=== PATIENT | female | born 1980 | race Two or more races ===

== ENCOUNTER 2019-10-31 05:07 | Day surgery (SDC) | payer BC ==
[2019-10-27 12:10] VITALS: BMI 41.0
[2019-10-31] MEDS ORDERED: MIDAZOLAM HCL 2 MG/2 ML SINGLE DOSE VIAL ONE (09:20)
--- NOTE | 2019-10-31 09:47 | HP ---
History & Physical Update - History History: No Change - Physical Physical: No Change - Assessment Assessment: No Change - Plan Plan: No Change (Consent signed and witnessed all questions answered)
--- NOTE | 2019-10-31 09:48 | OP ---
Operative Note - Note: Operative Date: 10/31/19 Pre-Operative Diagnosis: 39yo P2 with prolonged menses, anemia, fibroid uterus Operation: Hysteroscopy, Myomectomy, polypectomy, D&C Findings: Submucosal fibroid Endometrial polyp Cervical polyp Post-Operative Diagnosis: Same as Pre-op Surgeon: Livia Hudson Anesthesiologist/PUMPER GAUGER APPRENTICE: Nash Maddox Anesthesia: MAC Estimated Blood Loss (mls): 5 Instrument used (Debridements only): Symphion Hysteroscope with resectoscope Drains & Tubes with Location: Fluid deficit - 0cc Drains, Volume Out (mls): 100 Fluid Volume Replaced (mls): 400 Operative Report Dictated: Yes
[2019-10-31] MEDS ORDERED: IBUPROFEN 800 MG/8 ML IJ IVPB PRN (09:49)
[2019-10-31] MEDS ORDERED: ONDANSETRON 4 MG/2 ML VIAL IVPUSH PRN (09:49)
[2019-10-31] MEDS ORDERED: oxyCODONE HCL 5 MG TABLET PO PRN (09:49)
[2019-10-31] MEDS ORDERED: IBUPROFEN 600 MG TABLET (FP) PO PRN (09:49)
[2019-10-31] MEDS ORDERED: ELECTROLYTE-148 SOLN 1,000 ML IV SCH (10:00)
[2019-10-31] MEDS ORDERED: PROPOFOL 20 ML ONE ×2 (10:03→10:31)
[2019-10-31] MEDS ORDERED: DEXAMETHASONE SOD PHOSPHATE 4 MG/1 ML VIAL ONE (10:26)
[2019-10-31] MEDS ORDERED: LIDOCAINE HCL/PF 2% SDV 5ML VIAL ONE (10:26)
[2019-10-31] MEDS ORDERED: LIDOCAINE HCL 2% JELLY (5 ML/TUBE) ONE (10:26)
[2019-10-31] MEDS ORDERED: SUCCINYLCHOLINE CHLORIDE 200 MG/10 ML SYRINGE ONE (10:32)
[2019-10-31] MEDS ORDERED: LACTATED RINGERS SOLUTION 1,000 ML IV SCH (12:30)
--- NOTE | 2019-10-31 13:01 | OP ---
DATE OF OPERATION: DATE OF DICTATION: 10/31/2019 PREOPERATIVE DIAGNOSIS: A 39-year-old para 2 with prolonged menses, anemia, fibroid uterus. OPERATION: Hysteroscopy, myomectomy, polypectomy, dilation and curettage. FINDINGS: Submucosal fibroids, endometrial polyp, and cervical polyp. POSTOPERATIVE DIAGNOSIS: A 39-year-old para 2 with prolonged menses, anemia, fibroid uterus. SURGEON: Livia Hudson MD ANESTHESIOLOGIST: Nash Maddox MD ANESTHESIA: MAC. DESCRIPTION OF THE OPERATIVE PROCEDURE: After assuring informed consent, patient was brought to the operating room where she was placed in dorsal lithotomy position. Vagina and perineum were prepped and draped in a sterile fashion. The anterior cervical lip was articulated with single-tooth tenaculum, and cervix was gradually dilated to accommodate 6.3-mm Symphion hysteroscope, which was introduced into the cervix and into the uterus without any difficulty under direct visualization after Symphion hysteroscope was primed and wide balanced. The above findings were noted. The resectoscope was introduced through the operative port, and submucosal fibroid and 2 polyps, endometrial and cervical, were resected without any difficulty under direct good visualization. Subsequently, endometrium was curettaged as well. Subsequently, all the instruments were removed from uterus, cervix, and vagina. Patient tolerated the procedure well. Estimated blood loss 5 mL. Fluid deficit 0 mL. Patient drained 100 mL of urine and received 400 mL of IV fluids. All instrument and sponge count was correct x2. Patient tolerated procedure well and went to the recovery room in stable condition. Sanjeev [id number]
[2019-10-31 14:32] VITALS: BP 119/77; PULSE 86; TEMP 96.9
--- NOTE | 2019-11-01 15:52 | PATH ---
Surgical Pathology Report Patient Name: KELLY HERNÁNDEZ Med. Rec. #: [id number] /Age/Gender: 1980 (Age: 39) / F Account: [id number] Location: [facility] SURGICAL Taken: 10/31/2019 Received: 10/31/2019 Reported: 11/01/2019 Physicians: Livia Hudson M.D. Specimen(s) Received SUBMUCOSAL FIBROID ENDOMETRIAL POLY ENDOMETRIAL CURETTINGS Clinical History 39-year-old P2 with prolonged menses Final Diagnosis SUBMUCOSAL FIBROID, ENDOMETRIAL POLYP AND CURETTINGS: PORTIONS OF ENDOMETRIAL POLYP WITH FOCAL HEMORRHAGE. SEPARATE PORTIONS OF SECRETORY TYPE ENDOMETRIUM WITH FOCAL HYPERSECRETORY FEATURES. FEW FRAGMENTS OF SMOOTH MUSCLE BUNDLES, MAY REPRESENT A SUBMUCOSAL LEIOMYOMA IN THE PROPER CLINICAL SETTING. UNREMARKABLE FRAGMENTS OF ENDOCERVICAL TISSUE. Electronically Signed Wil Hedrick M.D. Gross Description Received in formalin labeled "submucosal fibroid, endometrial polyp and curettings," is a 5 g, 6.5 x 4.3 x 0.6 cm aggregate of jim-pink soft tissue fragments. The formalin is filtered and the specimen is entirely submitted in 8 cassettes. DL/10/31/2019 saudi/10/31/2019
== END 2019-10-31 15:15 | disposition home or self-care (01) ==
LOC: JASU-SURG 05:07
PROVIDERS: ATTEND Obstetrics & Gynecology
PROC: 0UDB8ZX Extraction of Endometrium, Via Natural or Artificial Opening Endoscopic, Diagnostic (ICD-10-PCS; 2019-10-31)
PROC: 0UB98ZZ Excision of Uterus, Via Natural or Artificial Opening Endoscopic (ICD-10-PCS; principal; 2019-10-31 09:00)
PROC: 0UB98ZX Excision of Uterus, Via Natural or Artificial Opening Endoscopic, Diagnostic (ICD-10-PCS; 2019-10-31 09:00)
DX: D25.0 Submucous leiomyoma of uterus (principal); N92.0 Excessive and frequent menstruation with regular cycle; D64.9 Anemia, unspecified; N84.0 Polyp of corpus uteri
CPT/HCPCS: 71046-TC-FY; 81025; 82962; 88305-TC; 94760